=== PATIENT | male | born 1995 | race Caucasian/White ===

== ENCOUNTER 2017-11-23 23:38 | Inpatient (IN) | payer MEDICAID ==
[~2017-11-23] VITALS: Ht 180.3 cm; Wt 61.4 kg
--- NOTE | ~2017-11-23 | HP ---
PATIENT: AMBIKA MCCORMACK MEDICAL RECORD: [id number] ACCOUNT: [id number] LOCATION:[id number] : [id number] ADMISSION DATE: 11/25/17 HISTORY AND PHYSICAL EXAMINATION DATE OF ADMISSION: 11/24/2017 CHIEF COMPLAINT: Shortness of breath. HISTORY OF PRESENT ILLNESS: The patient is a 22-year-old white male who presents after having had cough, congestion, shortness of breath since Tuesday. He has had some sputum production. He has had low-grade fever. It was felt that the patient should be admitted. Therefore, he is admitted to my service on an unassigned medicine, having no local PCP. PAST MEDICAL HISTORY: He has had a history of asthma as a child. He has had no previous hospitalizations or surgeries. FAMILY HISTORY: Mother and father apparently are healthy. HABITS: The patient states that he does nicotine, but is a nonsmoker and nondrinker. SOCIAL HISTORY: Born in [place], grew up in [place], lives in [facility] along with his brother, works in maintenance. ALLERGIES: None. REVIEW OF SYSTEMS: GENERAL: He denies any headaches, seizure or syncope. Denies change in visual or auditory acuity. PULMONARY: He reports increasing shortness of breath with cough, congestion, green, yellow sputum production. CARDIOVASCULAR: He has had no chest pain, palpitation, PND, orthopnea. GASTROINTESTINAL: No chronic nausea, vomiting, melena or hematochezia. GENITOURINARY: No urgency, frequency, or dysuria. PHYSICAL EXAMINATION: GENERAL: He is a thin white male who is in no acute distress at the present time. Temperature is 99.8, his pulse is 112, respirations 24, blood pressure 129/85, O2 sat is 91% on room air. HEENT: His head is normocephalic. No lesions. Ears: TMs clear. Eyes: Pupils are equal, round and reactive to light. His extraocular movements are intact. His nasal cavity, oral cavity and oropharynx clear. NECK: Supple. There is no adenopathy. HEART: Slightly tachycardic. LUNGS: He has diffuse end expiratory wheezes. ABDOMEN: Soft, bowel sounds are positive. No organomegaly. LABORATORY DATA: The patient had a white count elevated at 18.1, hemoglobin 17.1, hematocrit is 50.1, and platelets are 264. Potassium is 4.5. Sodium 141, chloride 100, CO2 is 29.5, BUN is 28, creatinine 1.2. Chest x-ray apparently was unremarkable, not present at the present time. ASSESSMENT: Asthma exacerbation, possible underlying early pneumonia. HISTORY AND PHYSICAL [id number] AMBIKA MCCORMACK PLAN: The patient will be placed on Solu-Medrol 1 mg/kg q.8 hours., also will be started on Rocephin 1 gram q.24 hours, Zithromax 500 mg IV. Also, albuterol, Atrovent updrafts. Sputum cultures will be obtained. Also will repeat a chest x-ray as well as CBC and BMP in a.m. The patient will be given hydration as well as O2 supplementation. TRANSINT:[id number] Voice Confirmation ID: [id number] DOCUMENT ID: [id number] MYLENE RUIZ MD at 0800 CC: [id number] DICTATION DATE: 11/24/17 07 SALON COORDINATOR: 11/24/17 0851 DIS IN 11/27/17 [facility] [address] [place] [address]
[2017-11-24 00:14] LABS: HEMATOCRIT 50.1 % (42.0-54.0); HEMOGLOBIN 17.1 g/dL (13.5-17.5); LYMPHOCYTES 7.3 % (15-50); MCH 28.9 pg (26.0-34.0); MCHC 34.1 g/dL (31.0-37.0); MCV 84.6 fL (80.0-100.0); MEAN PLATELET VOLUME 11.8 fL (7.4-10.4); NEUTROPHILS 83.2 % (40-80); PLATELET COUNT 264 10x3/uL (130-400); RBC 5.92 10x6/uL (4.20-6.10); RDW 13.3 % (11.5-14.5); WBC 18.1 10x3/uL (4.8-10.8)
[2017-11-24 00:29] LABS: ALBUMIN 5.3 g/dL (3.4-5.0); ALKALINE PHOSPHATASE 110 U/L (46-116); ALT (SGPT) 28 U/L (10-68); BILIRUBIN - TOTAL 1.15 mg/dL (0.2-1.3); CALC OSMOLALITY 287 mosm/kg (275-300); CALCIUM 10.2 mg/dL (8.5-10.1); CARBON DIOXIDE 29.5 mmol/L (21.0-32.0); CHLORIDE - SERUM 100 mmol/L (98-107); CREATININE - SERUM 1.2 mg/dL (0.6-1.3); GLUCOSE 122 mg/dL (74-106); POTASSIUM - SERUM 4.5 mmol/L (3.5-5.1); PROTEIN - SERUM 9.1 g/dL (6.4-8.2); SODIUM 141 mmol/L (136-145); UREA NITROGEN 28 mg/dL (7-18); eGFR NON AFRICAN AMERICAN 81 mL/min (90-120)
[2017-11-24 11:30] VITALS: BP 126/85; Ht 180.3 cm; Wt 61.4 kg
[2017-11-24 12:24] VITALS: BP 124/86
[2017-11-24 16:21] VITALS: BP 129/64
[2017-11-24 20:00] VITALS: BP 121/75
[2017-11-25] VITALS: BP 119/52
[2017-11-25 04:00] VITALS: BP 109/68
[2017-11-25 04:27] LABS: BASOPHILS 0 % (0-2); EOSINOPHILS 0 % (0-7); HEMATOCRIT 43.9 % (42.0-54.0); HEMOGLOBIN 15.1 g/dL (13.5-17.5); IMMATURE GRANULOCYTES 0.2 % (0-5); LYMPHOCYTES 5.5 % (15-50); MCH 29.7 pg (26.0-34.0); MCHC 34.4 g/dL (31.0-37.0); MCV 86.2 fL (80.0-100.0); MEAN PLATELET VOLUME 11.8 fL (7.4-10.4); MONOCYTES 5.5 % (2-11); NEUTROPHILS 88.8 % (40-80); PLATELET COUNT 250 10x3/uL (130-400); RBC 5.09 10x6/uL (4.20-6.10); RDW 13.1 % (11.5-14.5)
[2017-11-25 04:30] LABS: WBC 13.2 10x3/uL (4.8-10.8)
[2017-11-25 04:38] LABS: CALC OSMOLALITY 288 mosm/kg (275-300); CALCIUM 9.5 mg/dL (8.5-10.1); CARBON DIOXIDE 26.5 mmol/L (21.0-32.0); CHLORIDE - SERUM 104 mmol/L (98-107); GLUCOSE 155 mg/dL (74-106); POTASSIUM - SERUM 4.2 mmol/L (3.5-5.1); SODIUM 141 mmol/L (136-145); UREA NITROGEN 26 mg/dL (7-18); eGFR NON AFRICAN AMERICAN > 90 mL/min (90-120)
[2017-11-25 08:55] VITALS: BP 117/62
[2017-11-25 13:01] VITALS: BP 117/56
[2017-11-25 16:31] VITALS: BP 106/61
[2017-11-25 20:00] VITALS: BP 132/64
[2017-11-26] VITALS (7 sets, daily range): BP systolic 105–126; BP diastolic 42–73
[2017-11-26 03:53] LABS: BASOPHILS 0.1 % (0-2); EOSINOPHILS 0 % (0-7); HEMATOCRIT 40.2 % (42.0-54.0); HEMOGLOBIN 13.5 g/dL (13.5-17.5); IMMATURE GRANULOCYTES 0.3 % (0-5); LYMPHOCYTES 5.4 % (15-50); MCH 29.5 pg (26.0-34.0); MCHC 33.6 g/dL (31.0-37.0); MCV 87.8 fL (80.0-100.0); MEAN PLATELET VOLUME 12.1 fL (7.4-10.4); MONOCYTES 4.9 % (2-11); NEUTROPHILS 89.3 % (40-80); PLATELET COUNT 253 10x3/uL (130-400); RBC 4.58 10x6/uL (4.20-6.10); RDW 13.4 % (11.5-14.5); WBC 15.2 10x3/uL (4.8-10.8)
[2017-11-26 04:18] LABS: ALBUMIN 3.8 g/dL (3.4-5.0); ALKALINE PHOSPHATASE 76 U/L (46-116); ALT (SGPT) 29 U/L (10-68); BILIRUBIN - TOTAL 0.28 mg/dL (0.2-1.3); CALC OSMOLALITY 283 mosm/kg (275-300); CALCIUM 9.2 mg/dL (8.5-10.1); CARBON DIOXIDE 29.2 mmol/L (21.0-32.0); CHLORIDE - SERUM 102 mmol/L (98-107); CREATININE - SERUM 0.8 mg/dL (0.6-1.3); GLUCOSE 140 mg/dL (74-106); MAGNESIUM - SERUM 1.9 mg/dL (1.8-2.4); POTASSIUM - SERUM 4.2 mmol/L (3.5-5.1); SODIUM 139 mmol/L (136-145); UREA NITROGEN 23 mg/dL (7-18); eGFR NON AFRICAN AMERICAN > 90 mL/min (90-120)
[2017-11-27 07:57] VITALS: BP 118/70
[2017-11-27 12:34] VITALS: BP 122/65
[2017-11-27] MEDS ORDERED: PREDNISONE20 MG PO (12:42)
[2017-11-27] MEDS ORDERED: OMNICEF300 MG PO (12:42)
[2017-11-27] MEDS ORDERED: PROAIR HFA8.5 GM INH (12:43)
== END 2017-11-27 14:28 | disposition home or self-care (01) | DRG 203 ==
LOC: D.ER 23:38 → D.MS 11-24 06:51 → OBSVTIME 11-24 06:51 → D.MS 11-25 09:26
PROVIDERS: Family Medicine
DX: J45.901 Unspecified asthma with (acute) exacerbation (principal)